=== PATIENT | male | born 1970 | race American Indian/Alaskan Native ===

== ENCOUNTER 2018-05-07 17:30 | Emergency (ER) | payer SELFPAY ==
[2018-05-07] MEDS ORDERED: PROVENTIL IH ONE ×3 (17:41→18:39)
[2018-05-07] MEDS ORDERED: ATROVENT IH ONE ×2 (17:41)
[2018-05-07] MEDS ORDERED: SOLU-Medrol IV ONE (17:49)
--- NOTE | 2018-05-07 17:55 | Emergency Department Report ---
<CHINMAY PRESTON - Last Filed: 05/07/18 19:01> ED Asthma HPI - General Chief Complaint: Adult Asthma Stated Complaint: ASTHMA ATTACK Time Seen by Provider: 05/07/18 17:46 Source: patient Mode of arrival: Ambulatory Limitations: No Limitations - History of Present Illness Initial Comments: 47-year-old male with history of asthma presents to ED with complaints of wheezing since yesterday. Denies cough and fever. States he used inhaler at home without relief. Patient reports has a nebulizer machine at home but did not use it. MD Complaint: "asthma attack" -: Last night Severity: similar to prior Context: none known Associated Symptoms: denies: productive cough, fever, chest pain Treatments Prior to Arrival: inhaled bronchodilator - Related Data Current Asthma Therapy: inhaled bronchodilator Previous Rx's Medication Instructions Recorded Last Taken Type ALBUTEROL Inhaler(NF) [VENTOLIN 1 puff IH Q4HR PRN #1 inha 05/07/18 Unknown Rx Inhaler(NF)] predniSONE [Prednisone] 50 mg PO DAILY #5 tablet 05/07/18 Unknown Rx Allergies Allergy/AdvReac Type Severity Reaction Status Date / Time No Known Allergies Allergy Unverified 05/07/18 17:34 ED Review of Systems ROS: Stated complaint: ASTHMA ATTACK Other details as noted in HPI Comment: All other systems reviewed and negative Constitutional: denies: chills, fever Respiratory: wheezing Cardiovascular: denies: chest pain ED Past Medical Hx - Past Medical History Hx Asthma: Yes - Social History Smoking Status: Former Smoker - Medications Home Medications: Home Medications Medication Instructions Recorded Confirmed Last Taken Type ALBUTEROL Inhaler(NF) [VENTOLIN 1 puff IH Q4HR PRN #1 inha 05/07/18 Unknown Rx Inhaler(NF)] predniSONE [Prednisone] 50 mg PO DAILY #5 tablet 05/07/18 Unknown Rx ED Physical Exam - General Limitations: No Limitations General appearance: alert - Head Head exam: Present: atraumatic, normocephalic - Eye Eye exam: Present: normal appearance - ENT ENT exam: Present: mucous membranes moist - Neck Neck exam: Present: normal inspection - Respiratory Respiratory exam: Present: respiratory distress (mild), wheezes, other ( tachypnea present) - Cardiovascular Cardiovascular Exam: Present: regular rate, normal rhythm - GI/Abdominal GI/Abdominal exam: Present: soft. Absent: tenderness - Extremities Exam Extremities exam: Present: normal inspection. Absent: pedal edema - Neurological Exam Neurological exam: Present: alert, oriented X3 - Psychiatric Psychiatric exam: Present: normal affect, normal mood - Skin Skin exam: Present: warm, dry, intact, normal color ED Course Vital Signs 05/07/18 05/07/18 05/07/18 17:43 18:02 18:23 Temperature 98.7 F Pulse Rate 108 H Pulse Rate [ 99 H 110 H Anterior Bilateral Throughout] Respiratory 18 Rate Respiratory 26 H 20 Rate [Anterior Bilateral Throughout] Blood Pressure 113/87 [Right] O2 Sat by Pulse 95 Oximetry 05/07/18 05/07/18 19:26 20:13 Temperature Pulse Rate Pulse Rate [ 82 83 Anterior Bilateral Throughout] Respiratory Rate Respiratory 20 20 Rate [Anterior Bilateral Throughout] Blood Pressure [Right] O2 Sat by Pulse Oximetry - Reevaluation(s) Reevaluation #1: 05/07/18 18:38 Pt reports is feeling a lot better. Respirations have improved. Some wheezing still present, will give another neb treatment and re-assess. ED Medical Decision Making - Lab Data Result diagrams: 05/07/18 18:11 05/07/18 18:11 - Differential Diagnosis asthma, pneumonia, pulm edema Critical care attestation.: If time is entered above; I have spent that time in minutes in the direct care of this critically ill patient, excluding procedure time. ED Disposition Clinical Impression: Asthma Qualifiers: Asthma severity: mild Asthma persistence: intermittent Asthma complication type : with acute exacerbation Qualified Code(s): J45.21 - Mild intermittent asthma with (acute) exacerbation Disposition: DC-01 TO HOME OR SELFCARE Is pt being admited?: No Condition: Stable Instructions: Asthma (ED) Prescriptions: ALBUTEROL Inhaler(NF) [VENTOLIN Inhaler(NF)] 1 puff IH Q4HR PRN #1 inha PRN Reason: Wheezing predniSONE [Prednisone] 50 mg PO DAILY #5 tablet Referrals: PRIMARY CARE, [Primary Care Provider] - 3-5 Days [facility] [Outside] - 3-5 Days Forms: Work/School Release Form(ED) <DARWIN JAMA - Last Filed: 05/07/18 21:06> ED Medical Decision Making - Lab Data Result diagrams: 05/07/18 18:11 05/07/18 18:11 - Radiology Data Radiology results: image reviewed no opacities no infiltrates, - Medical Decision Making status improved no wheezing no cough no sob pt ambulated from room to main ed and back to room without increase in sob or wheezing pt advises breathing to baseline, and cannot wait for xray read, pt advised provider will contact him if chest xray read is abnormal, plan for now dc to home as planed [facility] rx for prednisone and albuterol refill, pt will follow up with [facility] in 2 days or return to ed if symptoms worsen. pt verbalized agreement and understanding of discharge plan. ED Disposition Does the pt Need Aspirin: No Time of Disposition: 21:06
[2018-05-07] MEDS ORDERED: MAGNESIUM SULFATE 2GM/50ML 2 GM/50 ML BAG IV ONE (18:00)
[2018-05-07 18:04] VITALS: BP 113/87
[2018-05-07 18:31] LABS: Basophils # (Auto) 0.1 K/mm3 (0.0-0.1); Eosinophils # (Auto) 1.2 K/mm3 (0.0-0.4); Eosinophils % (Auto) 11.9 % (0.0-4.3); Hematocrit 47.3 % (35.5-45.6); Hemoglobin 16.1 gm/dl (11.8-15.2); Lymphocytes # (Auto) 2.8 K/mm3 (1.2-5.4); Lymphocytes % (Auto) 27.9 % (13.4-35.0); Mean Corpuscular HGB Conc 34 % (32-34); Mean Corpuscular Hemoglobin 31 pg (28-32); Mean Corpuscular Volume 90 fl (84-94); Monocytes # (Auto) 0.8 K/mm3 (0.0-0.8); Monocytes % (Auto) 8.4 % (0.0-7.3); Platelet Count 175 K/mm3 (140-440); Red Blood Count 5.27 M/mm3 (3.65-5.03); Red Cell Distribution Width 13.8 % (13.2-15.2)
[2018-05-07 18:45] LABS: BUN/Creatinine Ratio 13; Blood Urea Nitrogen 9 mg/dL (9-20); Calcium 9.1 mg/dL (8.4-10.2); Hemolysis Index 19
[2018-05-07] MEDS: ATROVENT IH ONE ×2 (19:23→19:24)
[2018-05-07] MEDS ORDERED: PROVENTIL IH SCH (20:00)
--- NOTE | 2018-05-07 21:13 | XRay Report ---
FINAL REPORT EXAM: XR CHEST ROUTINE 2V HISTORY: Shortness of breath TECHNIQUE: Two view chest PA and lateral PRIORS: None. FINDINGS: Cardiac and mediastinal contours are unremarkable. No focal pulmonary infiltrate is identified. No pleural fluid collection seen. Pulmonary vasculature is unremarkable. IMPRESSION: Negative two-view chest
== END 2018-05-07 21:16 | disposition home or self-care (01) ==
LOC: ED 17:30
DX: J45.21 Mild intermittent asthma with (acute) exacerbation (principal); Z87.891 Personal history of nicotine dependence
CPT/HCPCS: 36415; 71046; 80048; 85025; 94640; 96365; 96375; 99284; J2930; J3475